=== PATIENT | male | born 1985 | race Caucasian/White ===

== ENCOUNTER 2017-04-13 13:42 | Emergency (ER) | payer MEDICAID, SELFPAY ==
[~2017-04-13] VITALS: Ht 177.8 cm; Wt 91.8 kg
[2017-04-13 13:43] VITALS: BP 157/103
== END 2017-04-13 14:29 | disposition home or self-care (01) ==
LOC: ED 14:25
DX: K02.9 Dental caries, unspecified (principal); I10 Essential (primary) hypertension; Z87.891 Personal history of nicotine dependence
CPT/HCPCS: 99283